=== PATIENT | female | born 1965 | race Caucasian/White ===

== ENCOUNTER → 2016-09-28 | Outpatient (CLI) | payer MEDICARE, MEDICAID ==
--- NOTE | 2016-09-28 16:49 | RADRPT ---
PROCEDURE: XR Chest. CLINICAL INDICATION: TB SCREENING TECHNIQUE: A single PA view of the chest was obtained COMPARISON: None FINDINGS: The cardiomediastinal silhouette is within normal limits. There are mild atherosclerotic calcifications of the aorta. Mild symmetric hazy appearance of the lower lungs bilaterally is likely attributable to overlying so ft tissues. Mild bibasilar atelectasis cannot be excluded. No pneumothorax, pleural effusion, or consolidation is identified. A few small calcified nodules in the lower lungs bilaterally, measuring up to 4 mm, likely represent granulomata. There are mild degenerative changes of the visualized spine. IMPRESSION: 1. No radiographic evidence of active tuberculosis. 2. Calcified granulomata in the lower lungs bilaterally. 3. Probable mild bibasilar atelectasis, accentuated by overlying soft tissues. RPTAT: TT Physician Julio Date Time Electronically viewed and signed by Physician Julio on 09/28/2016 16:49 [id number]/
== END | disposition home or self-care (01) ==
LOC: RAD 14:25
PROVIDERS: ATTEND Physical Medicine & Rehabilitation
DX: Z11.1 Encounter for screening for respiratory tuberculosis (principal)
CPT/HCPCS: 71010